=== PATIENT | male | born 1965 | race Caucasian/White ===

== ENCOUNTER 2018-01-13 05:00 | Inpatient (IN) ==
[2018-01-06 13:03] LABS: Basophils # (Auto) 0.1 K/mcL (0.0-0.3); Eosinophils # (Auto) 0.2 K/mcL (0.0-0.7); Eosinophils % (Auto) 4.2 % (0.0-7.0); Lymphocytes # (Auto) 1.6 K/mcL (1.5-4.8); Lymphocytes % (Auto) 31.5 % (15.5-49.0); Mean Cell Volume 102.3 fL (80.0-100.0); Mean Corpuscular HGB Conc 34.1 g/dL (31.0-36.0); Mean Corpuscular Hemoglobin 34.8 pg (26.0-34.0); Monocytes # (Auto) 0.5 K/mcL (0.1-0.9); Monocytes % (Auto) 9.3 % (1.0-12.0); Platelet Count 175 K/mcL (140-440); RBC 4.06 M/mcL (4.50-5.90); Red Cell Distribution Width 13.5 % (11.5-14.5)
[2018-01-06 13:15] LABS: Blood Urea Nitrogen 29 mg/dl (6-20)
[2018-01-06 13:23] LABS: Appearance,Urine CLEAR; Bacteria,Urine 0 /hpf (0); Bilirubin,Urine NEG (NEG); Color,Urine STRAW; Glucose,Urine (UA) NEGATIVE (NEG); Leukocyte Esterase,Urine NEG /uL (NEG); Mucus,Urine FEW /hpf (0); Protein,Urine 30 mg/dL (NEG); Specific Gravity,Urine 1.005 (1.000-1.035); Urine Blood NEG mg/dL (<0.03); Urine RBC 0 /hpf (0-1); Urine Squamous Epithelial Cell 0 /hpf (0-4); Urine WBC < 1 /hpf (0-4); Urobilinogen,Urine NEG (NEG)
[2018-01-13] MEDS ORDERED: IPRATROPIUM/ALBUTEROL 3 ML AMPUL.NEB NEB ONE (06:51)
[2018-01-13] MEDS ORDERED: PREGABALIN 75 MG CAPSULE PO SCH (07:00)
[2018-01-13] MEDS ORDERED: ceFAZolin 1 GM VIAL IV SCH (07:00)
[2018-01-13] MEDS ORDERED: CELECOXIB 200 MG CAPSULE PO SCH (07:00)
[2018-01-13] MEDS ORDERED: oxyCODONE 10 MG TAB.ER.12H PO SCH (07:00)
[2018-01-13] MEDS ORDERED: DEXAMETHASONE 10 MG/ML VIAL IV ONE (07:35)
[2018-01-13] MEDS ORDERED: ONDANSETRON 4 MG/2 ML VIAL IV ONE (07:35)
[2018-01-13] MEDS ORDERED: fentaNYL 250 MCG/5 ML VIAL IV ONE (07:35)
[2018-01-13] MEDS ORDERED: PROPOFOL 200 MG/20 ML VIAL IV ONE (07:35)
[2018-01-13] MEDS ORDERED: SUCCINYLCHOLINE 20 MG/ML ML IV ONE (07:35)
[2018-01-13] MEDS ORDERED: ePHEDrine 50 MG/ML AMPUL IV ONE (07:35)
[2018-01-13] MEDS ORDERED: MIDAZOLAM 5 MG/5 ML VIAL IV ONE (07:35)
[2018-01-13] MEDS ORDERED: LIDOCAINE HCL/PF 100 MG/5 ML SYRINGE IV ONE (07:35)
[2018-01-13] MEDS ORDERED: GLYCOPYRROLATE 0.2 MG/ML VIAL IV ONE (07:35)
[2018-01-13] MEDS ORDERED: HEPARIN 10,000 UNIT/ML VIAL IR ONE (08:38)
[2018-01-13] MEDS ORDERED: ACETAMINOPHEN 1,000 MG/100 ML BOTTLE IV ONE (08:58)
[2018-01-13] MEDS ORDERED: METHOCARBAMOL 1,000 MG/10 ML VIAL IV PRN (08:58)
[2018-01-13] MEDS ORDERED: MEPERIDINE 25 MG/ML SYRINGE IV PRN (08:58)
[2018-01-13] MEDS ORDERED: IPRATROPIUM/ALBUTEROL 3 ML AMPUL.NEB NEB PRN (08:58)
[2018-01-13] MEDS ORDERED: PROMETHAZINE 25 MG/ML VIAL IV PRN (08:58)
[2018-01-13] MEDS ORDERED: LACTATED RINGERS 1,000 ML IV SCH (09:00)
--- NOTE | 2018-01-13 09:17 | Brief Operative Note ---
Date of procedure: 01/13/18 Pre-op diagnosis: R hip DJD Post-op diagnosis: same Procedure: Right total hip arthroplasty Grafts/Implants: Yes (Depuy Actis 9 HO, +1.5 36 delta head, 56 head, altrx liner ) Anesthesia: spinal, GLMA Findings: arthritis Complications: none Surgeon: Coleman Rodriguez Financial Service Representative: Vishnu Trivedi Estimated blood loss (cc): 350 Specimens Removed/Pathology: none sent Condition: stable Disposition: PACU
[2018-01-13] MEDS ORDERED: BISACODYL 10 MG SUPP.RECT PR PRN (09:20)
[2018-01-13] MEDS ORDERED: BENZOCAINE/MENTHOL 1 LOZENGE PO PRN (09:20)
[2018-01-13] MEDS ORDERED: KETOROLAC 30 MG/ML VIAL IV PRN (09:20)
[2018-01-13] MEDS ORDERED: POLYETHYLENE GLYCOL 3350 17 GM PACKET PO PRN (09:20)
[2018-01-13] MEDS ORDERED: TRANEXAMIC ACID 1,000 MG/10 ML VIAL IV ONE (09:20)
[2018-01-13] MEDS ORDERED: HYDROmorphone 2 MG/ML VIAL IV PRN (09:20)
[2018-01-13] MEDS ORDERED: FLEETS ADULT ENEMA PR PRN (09:20)
[2018-01-13] MEDS ORDERED: MAGNESIUM HYDROXIDE 30 ML ORAL.SUSP PO PRN (09:20)
[2018-01-13] MEDS ORDERED: ONDANSETRON 4 MG/2 ML VIAL IV PRN (09:20)
[2018-01-13] MEDS ORDERED: NITROGLYCERIN 0.4 MG TAB.SUBL SL PRN (09:29)
[2018-01-13] MEDS ORDERED: NICOTINE POLACRILEX 4 MG PO PRN (09:29)
[2018-01-13] MEDS ORDERED: IPRATROPIUM/ALBUTEROL SULFATE 1 PUFF INHALER INH PRN (09:29)
[2018-01-13] MEDS ORDERED: VITAMIN D3 5,000 UNIT CAPSULE PO SCH (09:30)
--- NOTE | 2018-01-13 09:35 | XRay Report ---
CLINICAL INFORMATION: Intraoperative fluoroscopy. Right hip replacement TECHNIQUE: 0.6 minutes of fluoroscopy utilized. Spot films obtained. Right total hip arthroplasty performed IMPRESSION: 1. Intraoperative fluoroscopy 2. Right hip replacement Interpreted and Authenticated by: Rowdy Parisi 01/13/18
[2018-01-13] MEDS ORDERED: METHOCARBAMOL 750 MG TABLET PO PRN (09:46)
--- NOTE | 2018-01-13 10:06 | XRay Report ---
CLINICAL INFORMATION: Right total hip arthroplasty TECHNIQUE: AP pelvis. AP and lateral right hip COMPARISON: Preoperative MRI scan dated 06/29/2017 FINDINGS: Status post right total hip arthroplasty. Alignment is anatomic. There are skin joe overlying the right hip. IMPRESSION: Status post right total hip arthroplasty Interpreted and Authenticated by: Rowdy Parisi 01/13/18
--- NOTE | 2018-01-13 10:07 | Operative Note ---
DATE OF OPERATION: 01/13/2018 PREOPERATIVE DIAGNOSIS: Right hip severe osteoarthritis. POSTOPERATIVE DIAGNOSIS: Right hip severe osteoarthritis. PROCEDURE PERFORMED: Right total hip arthroplasty through direct anterior approach using a DePuy Actis size 9 high offset femoral stem, a +1.5, 36 mm delta ceramic head ball, a 56 no-hole [place] cup with a neutral AltrX liner. SURGEON: Coleman Rodriguez MD. MAGAZINE FILLER: Smith Trivedi PA-C. ANESTHESIA: Spinal plus general. DRAINS: None. SPECIMENS: Femoral head and reamings, which were discarded. BLOOD LOSS: 250 mL COMPLICATIONS: None. POSTOPERATIVE CONDITION: Stable. INDICATIONS FOR SURGERY: This is a 52-year-old male who has had longstanding progressive worsening right hip pain. Radiographs showed severe osteoarthritis. FINDINGS AT SURGERY: As above. There also even appeared to be some delamination of the femoral head cartilage. Post implantation showed excellent component position and jehovah's witness of leg length and offset. PROCEDURE IN DETAIL: The patient has been seen preoperatively. Informed consent had been obtained after discussion of risks, benefits of surgery. Risks including, but not limited to, bleeding, possibly requiring transfusion; infection, possibly requiring implant removal and prolonged IV antibiotics; injury to nerves, blood vessels other surrounding structures; anesthetic risks; incomplete or no resolution of symptoms; leg length discrepancy; dislocation; fracture; DVT and pulmonary embolus risks; and the possibility of further revision surgery. He understood these risks and wished to proceed. Correct operative site was marked and the patient was taken to the operating room after spinal anesthesia was given. He was carefully positioned on the fracture table after LMA general was given the right hip and groin were carefully prepped and draped in normal sterile fashion and a timeout was performed verifying patient name, operative site, and plan. A standard anterior approach incision was made with a scalpel through skin, subcutaneous tissue and careful blunt dissection taken down on to the tensor fascia. We did identify the lateral femoral cutaneous nerve, which crossed directly over our surgical site. This was dissected free. We irrigated with IrriSept and then a ring retractor was placed. The tensor fascia was incised in line with the muscle fibers and then careful blunt dissection taken medial to the muscle belly. Blunt cobra retractors were placed on the superior and inferior neck and then circumflex vessels were coagulated and cut and vastus fascia split distally. Anterior capsulectomy was performed and capsule release was performed. A corkscrew was placed in the femoral head. It was when we went to place this that we noted the delamination of the cartilage that remained. An osteotome was used under fluoro to identify our neck cut trajectory and then oscillating tip saw used to perform our osteotomy. The head was removed. Acetabulum was exposed. Labrum was excised. We reamed up to a size 55 before we had good rim ream. We opened a 56 no-hole cup. The acetabulum was irrigated with IrriSept, after a minute pulse lavaged copiously with saline and then ME 1000 was used to impact the cup at approximately 35 degrees of inclination and 25 degrees of anteversion. A center hole cover was placed. Anterior osteophyte was removed with a curved osteotome and then center hole cover was placed. Neutral AltrX liner was impacted. We then released traction. The proximal femur was exposed. We broached up to a size 8 and calcar planed down high offset neck and a +1.5 head ball trial were placed and the hip reduced. AP pelvis was taken to verify neutral rotation and then overlays were done of the nonoperative and operative hips which showed good position and we went ahead and re-exposed the proximal femur. The ME 1000 was used to impact and we were able to impact a little bit deeper, so we went up to a size 9, which seated right at our neck cut. We went ahead and removed the broach. A 9 high offset stem was opened. The canal was irrigated with IrriSept, after a minute pulse lavage and then a 9 high offset stem was impacted and seated on her neck cut. A +1.5 head ball was opened and impacted after carefully cleaning the stem. Hip was reduced. Final fluoro images were taken and saved. We then irrigated with IrriSept. After a minute we pulse lavaged and then a #1 Vicryl was used to close tensor fascia carefully protecting the lateral femoral cutaneous nerve branch. We then removed the ring retractor. IrriSept was irrigated again and after a minute we pulse lavaged. Fat was tacked to fascia with Vicryl and then 2-0 Monocryl for subcutaneous and joe for skin. Xeroform and sterile dressing were applied. The patient was then awakened, extubated, and transferred to recovery in stable condition. KATHY:lorene Job ID: [id number] Doc ID: [id number] Coleman Rodriguez MD
[2018-01-13] MEDS: fentaNYL 100 MCG/2 ML VIAL IV PRN ×2 (10:14→10:20)
[2018-01-13] MEDS: HYDROcodone/APAP 10/325MG TABLET PO PRN ×3 (12:52→21:09)
[2018-01-13] MEDS: 0.9 % SODIUM CHLORIDE 1,000 ML IV SCH ×2 (13:31→19:47)
[2018-01-13] MEDS: 0.9 % SODIUM CHLORIDE 10 ML SYRINGE IV SCH ×2 (13:33→23:14)
[2018-01-13] MEDS: FERROUS SULFATE 325 MG TABLET PO SCH (17:04)
[2018-01-13] MEDS: CARVEDILOL 12.5 MG TABLET PO SCH (17:04)
[2018-01-13] MEDS: ceFAZolin 1 GM VIAL IV SCH ×2 (17:04→23:14)
[2018-01-13] MEDS ORDERED: SENNOSIDES 1 TABLET PO SCH (21:00)
[2018-01-13] MEDS ORDERED: amLODIPine 5 MG TABLET PO SCH (21:00)
[2018-01-13] MEDS ORDERED: ATORVASTATIN 20 MG TABLET PO SCH (21:00)
[2018-01-13] MEDS ORDERED: TAMSULOSIN 0.4 MG CAPSULE PO SCH (21:00)
[2018-01-13] MEDS: DOCUSATE SODIUM 100 MG CAPSULE PO SCH (21:03)
[2018-01-13] MEDS: ASPIRIN 325 MG ENTERIC COATED TABLET PO SCH (21:03)
[2018-01-14] MEDS: HYDROcodone/APAP 10/325MG TABLET PO PRN ×3 (02:14→12:35)
[2018-01-14] MEDS ORDERED: PANTOPRAZOLE 40 MG TABLET PO SCH (07:30)
[2018-01-14] MEDS ORDERED: LOSARTAN 25 MG TABLET PO SCH (09:00)
[2018-01-14] MEDS: DOCUSATE SODIUM 100 MG CAPSULE PO SCH (09:10)
[2018-01-14] MEDS: CARVEDILOL 12.5 MG TABLET PO SCH (09:10)
[2018-01-14] MEDS: 0.9 % SODIUM CHLORIDE 10 ML SYRINGE IV SCH (09:10)
[2018-01-14] MEDS: ASPIRIN 325 MG ENTERIC COATED TABLET PO SCH (09:10)
[2018-01-14] MEDS: FERROUS SULFATE 325 MG TABLET PO SCH (09:10)
[2018-01-15] MEDS ORDERED: Febuxostat [Uloric] 80 mg Tab PO SCH (09:00)
--- NOTE | 2018-02-18 12:41 | Discharge Summary ---
Providers - Providers Patient information: Note initiated : 02/18/18 at 12:39 pm Service Date, if different from initiated Date: 01/14/18 discharge originally entered 01/14/2018 the date patient was seen however the right knee problems. this is being redone at this time. Patient: Dante Guillen 52 y/o M admitted on 01/13/18 for Right Total Hip Arthroplasty. Chief Complaint: Discharge date: 01/14/18 Hospitalization Hospital course: patient was admitted for a right total hip arthroplasty. he was admitted on the day of procedure. he spent one night on the floor prior to being discharged. He was given aspirin for DVT prophylaxis. he will stand outpatient physical therapy. he will follow up in the orthopedic clinic in 2 weeks. Discharge diagnosis: R hip OA Exam - Exam Clean and dry: Yes Weight bearing status: as tolerated Ortho Discharge - [facility] - Patient Instructions Diet: Regular Diet Activity: activity as tolerated Total Hip Protocol: Follow activity instructions as provided by Physical Therapy. Dressing Care: May shower in 2 days Patient Education: Hydrocodone/Acetaminophen (By mouth), Aspirin (By mouth), Minimally Invasive Total Hip Replacement (DC) Additional Instructions: Discharge Instructions: Do the exercises at home that physical therapy gave you throughout the day. Weight bearing as tolerated. Activity as tolerated. The [facility] will schedule your physical therapy appointment. Please call them for date and time. Take your prescription, photo ID, insurance cards, and current medication list with you to your first physical therapy appointment. Wear comfortable clothing for your physical therapy. Consider premedicating with pain medication 45 minutes prior to appt. You have the Aquacel Ag dressing, leave in place for 7 days then remove. If dressing becomes soiled (turns black), remove and use gauze 4x4 dressing and silvasorb ointment and change daily. Keep incision clean and dry. Do not soak in tub or spa. Pat dry. You may start showering on post op day #2, which is tomorrow. Take your prescription to sweet pickle maker any medication or equipment (such as walker, crutches, toilet riser) To avoid constipation while taking any narcotic pain medication, take an over the counter stool softener/laxative. Use ice packs as directed, on for 20 minutes at a time throughout the day. This and elevation will help with pain and swelling. You will be taking Aspirin 325 mg (Ecotrin) twice daily for prevention of blood clots for 2 weeks. Please contact your solid tire tuber machine operator or PCP about resuming plavix after aspirin regimen is done. Call your physician for fevers above 100.5 or pain not controlled by medication. Your prescriptions are with your discharge information. Some medications were electronically transmitted to your pharmacy of choice. - Follow Up Plan Follow Up Appointments: Vishnu Trivedi PA-C [Physician Feed Mill Tender] - 01/28/18 9:20 am Disposition: Home, Self-Care Prognosis: Good Rehab Potential: Good Overall status at discharge: patient is progressing back to baseline - Orders For Discharge Prescriptions: Aspirin [Ecotrin] 325 mg PO BID #60 tab.ec HYDROcodone/APAP 10/325MG [[place] 10-325Mg] 1 - 2 tab PO Q4HP PRN #90 tab PRN Reason: Pain Level 3-6 Additional Discharge Orders: Physical Therapy at Discharge - [facility] Location: Determined By Patient Walker Location: Determined By Patient Pending Studies Resuscitation Status Full Code Diet Consistent Carbohydrate Diet Start ThuJan 13 927 Shift Summary 01/14/18 05:19 Shift Summary by Cynthia Lee Pt was up most of the night, but this is his normal. PO meds given twice, keeping his pain under control. Was s/c for over 1000cc early in the shift, has been voiding well since by standing at the bedside. Has ambulated the halls once w/SBA & FWW; gait steady w/no increase in pain. Has home CPAP at bedside. Hoping to go home today. Initialized on 01/14/18 05:19 - END OF NOTE
== END 2018-01-14 14:10 | disposition home or self-care (01) | DRG 470 ==
LOC: MEDSUR 05:00
PROVIDERS: ADMIT Orthopaedic Surgery; ATTEND Orthopaedic Surgery